=== PATIENT | female | born 1995 | race Caucasian/White ===

== ENCOUNTER 2021-01-10 22:43 | Emergency (ER) | payer SELFPAY ==
[~2021-01-10] VITALS: Ht 172.7 cm; Wt 90.0 kg
[2021-01-10 23:00] VITALS: BP 132/83
--- NOTE | 2021-01-10 23:21 | PHYS DOC ---
Past Medical History Additional Past Medical Histor: factor V General Adult EDM: Chief Complaint: ALLERGIC REACTION HPI: HPI: Patient is a 25-year-old female that presents today with a possible allergic reaction. Patient states she was at work today and she decided to eat a piece of cake and she said after that she started having some numbness and tingling in her tongue and she says she started seeing spots and was not feeling well. She states she took 50 mg of oral Benadryl solution, she states she is unable to swallow pills, and came to the emergency department. 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 Review of Systems: Review of Systems: Constitutional: Denies fever or chills. [] Eyes: Denies change in visual acuity. [] HENT: Numbness and tingling in her tongue and mouth area Respiratory: Denies cough or shortness of breath. [] Cardiovascular: Denies chest pain or edema. [] GI: Denies abdominal pain, nausea, vomiting, bloody stools or diarrhea. [] : Denies dysuria. [] Musculoskeletal: Denies back pain or joint pain. [] Integument: Denies rash. [] Neurologic: Denies headache, focal weakness or sensory changes. [] Endocrine: Denies polyuria or polydipsia. [] Lymphatic: Denies swollen glands. [] Psychiatric: Denies depression or anxiety. [] Heart Score: C/O Chest Pain: N/A Risk Factors: Risk Factors: DM, Current or recent (<one month) smoker, HTN, HLP, family history of CAD, obesity. Risk Scores: Score 0 - 3: 2.5% MACE over next 6 weeks - Discharge Home Score 4 - 6: 20.3% MACE over next 6 weeks - Admit for Clinical Observation Score 7 - 10: 72.7% MACE over next 6 weeks - Early Invasive Strategies Physical Exam: PE: Constitutional: Well developed, well nourished, no acute distress, non-toxic appearance. [] HENT: Normocephalic, atraumatic, bilateral external ears normal, oropharynx moist, no oral exudates, nose normal. No swelling of the tongue noted [] Eyes: PERRLA, EOMI, conjunctiva normal, no discharge. [] Neck: Normal range of motion, no tenderness, supple, no stridor. [] Cardiovascular:Heart rate regular rhythm, no murmur [] Lungs & Thorax: Bilateral breath sounds clear to auscultation [] Abdomen: Bowel sounds normal, soft, no tenderness, no masses, no pulsatile masses. [] Skin: Warm, dry, no erythema, no rash. [] Back: No tenderness, no CVA tenderness. [] Extremities: No tenderness, no cyanosis, no clubbing, ROM intact, no edema. [] Neurologic: Alert and oriented X 3, normal motor function, normal sensory function, no focal deficits noted. [] Psychologic: Affect normal, judgement normal, mood normal. [] Current Patient Data: Vital Signs: Vital Signs Date Time Temp Pulse Resp B/P (MAP) Pulse Ox O2 Delivery O2 Flow Rate FiO2 01/10/21 23:00 98.2 72 22 132/83 (99) Room Air 98.2 EKG: EKG: [] Radiology/Procedures: Radiology/Procedures: [] Course & Med Decision Making: Course & Med Decision Making Pertinent Labs and Imaging studies reviewed. (See chart for details) 2315 patient states that she has an esophageal condition which does not allow her to take oral pills she is able to swallow solutions. 2425 patient states she feels much better no numbness or tingling in her tongue, oxygenation level is 100% heart rate is 75. We will send patient home with instructions to come back if her symptoms return. Due to patient's chronic medical issues she will be given a brochure of clinics that she can follow-up with and also prime health care providers to establish care with. Patient is agreeable with plan of care and with going home Dragon Disclaimer: Betty Disclaimer: This electronic medical record was generated, in whole or in part, using a voice recognition dictation system. Departure Departure Impression: Primary Impression: Allergic reaction Qualified Codes: T78.40XA - Allergy, unspecified, initial encounter Disposition: HOME / SELF CARE / HOMELESS Condition: STABLE Referrals: SINCERE EUCEDA MD Patient Instructions: Food Allergy Additional Instructions: Avoid cake that you ate or any substances within the cake Return to the emergency department if you have swelling of your lips or tongue, increased work of breathing, increased shortness of air, chest pain or the inability to catch her breath. Please review the brochures provided on clinics and primary care physicians to establish care within the area due to chronic illnesses KARMA CLEMONS APRN Jan 10, 2021 23:21
[2021-01-11] MEDS ORDERED: DEXAMETHASONE 4 MG TABLET PO ONE
[2021-01-11] MEDS ORDERED: DEXAMETHASONE SOD PHOS 20 MG/5 ML VIAL. PO ONE
[2021-01-11] MEDS ORDERED: FAMOTIDINE 20 MG TABLET. PO ONE
[2021-01-11] MEDS ORDERED: ENOX100D SQ (00:20)
[2021-01-11] MEDS ORDERED: METH10TA32 PO (00:20)
== END 2021-01-11 00:45 | disposition home or self-care (01) ==
LOC: ER 22:43
DX: T78.40XA Allergy, unspecified, initial encounter (principal)
CPT/HCPCS: 99283; J1100